=== PATIENT | male | born 1935 | race Hispanic/Latino ===

== ENCOUNTER 2016-09-21 12:13 | Emergency (ER) | payer MEDICARE ==
[2016-09-21 12:15] VITALS: BMI 29.5
[2016-09-21 12:33] VITALS: TEMP 98
--- NOTE | 2016-09-21 12:34 | ED PDOC ---
Arrival/HPI - General Chief Complaint: High Blood Pressure Time Seen by Provider: 09/21/16 12:17 Historian: Patient - History of Present Illness Narrative History of Present Illness (Text): 09/21/16 12:29 A 80 year old male, whose past medical history includes hypertension, was sent into the emergency department by visiting nurse for high blood pressure. Patient states he is usually non-compliant with his blood pressure medication. He reports approximately 1 week ago he experienced chest pain that lasted for 4- 5 hours. Patient denies any fever, chills, nausea, vomiting, abdominal pain, chest pain, shortness of breath, cough, lower extremity swelling or any other complaints at this time. PMD: Dr. Guevara Time/Duration: Prior to Arrival Symptom Course: Unchanged Quality: Other Context: Home Past Medical History - Provider Review Nursing Documentation Reviewed: Yes - Infectious Disease Hx of Infectious Diseases: None - Tetanus Immunization Tetanus Immunization: Unknown - Cardiac Hx Hypertension: Yes Other/Comment: Heart Stents x 3 - Neurological Hx Paralysis: No - HEENT Hx HEENT Disorder: Yes (Uses glasses) - Hematological/Oncological Hx Blood Transfusions: No Hx Blood Transfusion Reaction: No - Musculoskeletal/Rheumatological Hx Musculoskeletal Disorders: No - Genitourinary/Gynecological Hx Hematuria: Yes - Psychiatric Hx Substance Use: No - Anesthesia Hx Anesthesia Reactions: No Hx Malignant Hyperthermia: No - Suicidal Assessment Feels Threatened In Home Enviroment: No Family/Social History - Physician Review Nursing Documentation Reviewed: Yes Family/Social History: No Known Family HX Smoking Status: Former Smoker Hx Alcohol Use: No Hx Substance Use: No Hx Substance Use Treatment: No Allergies/Home Meds Allergies/Adverse Reactions: Allergies No Known Allergies Allergy (Verified 11/24/12 02:37) Home Medications: Home Meds Medication Instructions Recorded Confirmed Atenolol [Tenormin] 25 mg PO BID 09/21/16 09/21/16 Lisinopril/Hydrochlorothiazide 1 tab PO DAILY 09/21/16 09/21/16 [Lisinopril-Hctz 20-12.5 mg Tab] amLODIPine [Norvasc] 10 mg PO DAILY 09/21/16 09/21/16 Review of Systems - Physician Review All systems were reviewed & negative as marked: Yes - Review of Systems Constitutional: Other (High blood pressure). absent: Fevers, Night Sweats Respiratory: absent: SOB, Cough Cardiovascular: absent: Chest Pain, Edema Gastrointestinal: absent: Abdominal Pain, Nausea, Vomiting Physical Exam Vital Signs Reviewed: Yes Vital Signs Temp Pulse Resp BP Pulse Ox 09/21/16 13:28 59 L 20 177/78 H 94 L 09/21/16 13:21 43 L 17 165/82 H 95 09/21/16 13:06 46 L 19 170/81 H 94 L 09/21/16 12:54 50 L 18 185/97 H 95 09/21/16 12:50 44 L 16 198/92 H 96 09/21/16 12:48 45 L 18 198/92 H 95 09/21/16 12:47 41 L 15 215/91 H 94 L 09/21/16 12:46 61 21 211/102 H 95 09/21/16 12:13 98 F 47 L 16 194/103 H 96 Temperature: Afebrile Blood Pressure: Hypertensive Pulse: Bradycardic Respiratory Rate: Normal Appearance: Positive for: Well-Appearing, Non-Toxic, Comfortable Pain Distress: None Mental Status: Positive for: Alert and Oriented X 3 - Systems Exam Head: Present: Atraumatic, Normocephalic Pupils: Present: PERRL Extroacular Muscles: Present: EOMI Conjunctiva: Present: Normal Mouth: Present: Moist Mucous Membranes Neck: Present: Normal Range of Motion Respiratory/Chest: Present: Clear to Auscultation, Good Air Exchange. No: Respiratory Distress, Accessory Muscle Use Cardiovascular: Present: Normal S1, S2, Bradycardic (Low 40's on patients monitor, wax and wanes in the 60's). No: Murmurs Abdomen: Present: Normal Bowel Sounds. No: Tenderness, Distention, Peritoneal Signs Back: Present: Normal Inspection Upper Extremity: Present: Normal Inspection. No: Cyanosis, Edema Lower Extremity: Present: Normal Inspection. No: Edema Neurological: Present: GCS=15, CN II-XII Intact, Speech Normal Skin: Present: Warm, Dry, Normal Color. No: Rashes Psychiatric: Present: Alert, Oriented x 3, Normal Insight, Normal Concentration Medical Decision Making ED Course and Treatment: 09/21/16 12:29 Impression: A 80 year old male with high blood pressure. Patient reports chest pain for 4-5 hours 1 week ago. Patient currently denies any pain or discomfort. Physical exam unremarkable. Differential Diagnosis included but are not limited to: Hypertensive urgency secondary to medication non-compliance, Chest pain rule out ACS Plan: -- Chest xray -- EKG -- Labs -- Urinalysis -- Aspirin and Apresoline -- Reassess and disposition Progress Notes: Report Date : 09/21/2016 13:03:22 Procedure: Chest xray Dictator : Desmond Iyer MD IMPRESSION: No active disease. 09/21/16 13:17 CRUZITO Risk score is low and noted in the chart. Case was discussed with Dr. Doran who will see him in the office this Monday. Dr. Doran recommended that patient be compliant with his medication and double the dose of his Lisinopril/HCTZ. Patient advised to return to the ED if symptoms worsen or any other concern. 09/21/16 13:22 EKG shows sinus bradycardia at 46 BPM with T-wave inversions in inferior leads, with no changes from prior on 03/27/14. Interpreted by me. - Lab Interpretations Lab Results: 09/21/16 12:30 09/21/16 12:30 Lab Results 09/21/16 12:30: Sodium 140, Potassium 4.5, Chloride 106, Carbon Dioxide 25, Anion Gap 14, BUN 16, Creatinine 1.1, Est GFR ( Amer) > 60, Est GFR (Non- Af Amer) > 60, Random Glucose 101, Calcium 9.6, Magnesium 2.1, Total Bilirubin 1.3, AST 23, ALT 32, Alkaline Phosphatase 76, Lactate Dehydrogenase 376, Total Creatine Kinase 36, Troponin I 0.01 D, Total Protein 7.8, Albumin 4.1, Globulin 3.7, Albumin/Globulin Ratio 1.1 09/21/16 12:30: WBC 5.9, RBC 5.19, Hgb 15.4, Hct 44.4, MCV 85.5, MCH 29.7, MCHC 34.7, RDW 12.7, Plt Count 64 L, MPV 12.3 H, Gran % 37.7 L, Lymph % (Auto) 46.5 H , Crook % (Auto) 12.5 H, Eos % (Auto) 2.6, Baso % (Auto) 0.7, Gran # 2.21, Lymph # 2.7, Crook # 0.7 H, Eos # 0.2, Baso # 0.04 I have reviewed the lab results: Yes Interpretation: Abnormal lab values (Thrombocytopenia which is his baseline) - RAD Interpretation Radiology Orders: 09/21/16 12:30 CHEST PORTABLE [RAD] Stat - Medication Orders Current Medication Orders: Discontinued Medications Aspirin (Aspirin Chewable) 324 mg PO STAT STA Stop: 09/21/16 12:32 Last Admin: 09/21/16 12:48 Dose: 324 mg Hydralazine HCl (Apresoline) 10 mg IVP ONCE ONE Stop: 09/21/16 12:32 Last Admin: 09/21/16 12:48 Dose: 10 mg CRUZITO Risk Score for UA/NSTEMI - CRUZITO Risk Score Age > 64: YES 3 or more CAD Risk Factors: YES Aspirin use in past 7 days: NO Severe Angina: NO EKG ST changes greater than 0.5mm: NO Positive Cardiac Marker: NO CRUZITO Score: 2 % risk at 14 days of: all cause mortality, new or recurrent ND, or severe recurrent ischemia requiring urgen revascularization: 8% - Scribe Statement The provider has reviewed the documentation as recorded by the [employer] [place] Provider Scribe Attestation: All medical record entries made by the Neoibgibran were at my direction and personally dictated by me. I have reviewed the chart and agree that the record accurately reflects my personal performance of the history, physical exam, medical decision making, and the department course for this patient. I have also personally directed, reviewed, and agree with the discharge instructions and disposition. Disposition/Present on Arrival - Present on Arrival Any Indicators Present on Arrival: No History of DVT/PE: No History of Uncontrolled Diabetes: No Urinary Catheter: No History of Decub. Ulcer: No History Surgical Site Infection Following: None - Disposition Have Diagnosis and Disposition been Completed?: Yes Diagnosis: Hypertension Disposition: HOME/ ROUTINE Disposition Time: 13:19 Patient Plan: Discharge Condition: FAIR Additional Instructions: Dr. Webb, thank you for letting us take care of you today. Your provider was Dr. Meyer. You were treated for Hyptension, Chest Pain. The emergency medical care you received today was directed at your acute symptoms. If you were prescribed any medication, please fill it and take as directed. It may take several days for your symptoms to resolve. Return to the Emergency Department if your symptoms worsen, do not improve, or if you have any other problems. Please contact your doctor or call one of the physicians/clinics you have been referred to that are listed on the Patient Visit Information form that is included in your discharge packet. Bring any paperwork you were given at discharge with you along with any medications you are taking to your follow up visit. Our treatment cannot replace ongoing medical care by a primary care provider (PCP) outside of the emergency department. Thank you for allowing the [facility] team to be part of your care today. If you had an X-Ray or CT scan: A Radiologist will review the ED reading if any change in treatment is needed we will contact you. If you had a blood, urine, or wound culture: It will take several days for the results, if any change in treatment is needed we will contact you. If you had an STI test: It will take 48 hours for the results. Please call after 1 week if you have not heard back. Prescriptions: amLODIPine [Norvasc] 10 mg PO DAILY #30 tab Atenolol [Tenormin] 25 mg PO BID #60 tablet Lisinopril/Hydrochlorothiazide [Lisinopril-Hctz 20-25 mg Tab] 1 each PO DAILY # 30 tablet Referrals: Pablito Guevara MD [Primary Care Provider] - Follow up with primary Forms: WORK NOTE
[2016-09-21 12:49] LABS: BASO # 0.04 K/mm3 (0.0-2.0); BASO % 0.7 % (0.0-3.0); EOS # 0.2 (0.0-0.7); EOS % 2.6 % (1.5-5.0); GRAN # 2.21 (1.4-6.5); GRAN % 37.7 % (50.0-68.0); HEMATOCRIT 44.4 % (42.0-52.0); LYMPH # 2.7 (1.2-3.4); LYMPH % 46.5 % (22.0-35.0); MEAN CELL VOLUME 85.5 fL (80.0-105.0); MEAN CORPUSCULAR HEMOGLOBIN 29.7 pg (25.0-35.0); MEAN CORPUSCULAR HGB CONC 34.7 g/dl (31.0-37.0); MEAN PLATELET VOLUME 12.3 fl (7.0-11.0); MONO # 0.7 (0.1-0.6); MONO % 12.5 % (1.0-6.0); PLATELET COUNT 64 10^3/uL (120.0-450.0); RED CELL DISTRIBUTION WIDTH 12.7 % (11.5-14.5); WHITE BLOOD COUNT 5.9 10^3/ul (4.5-11.0)
[2016-09-21 12:50] LABS: ADD MANUAL DIFF? NO
[2016-09-21 12:54] LABS: ALB/GLOB RATIO 1.1 (1.1-1.8); ALKALINE PHOSPHATASE 76 U/L (38-133); ALT/SGPT 32 U/L (7-56); AST/SGOT 23 U/L (15-59); BILIRUBIN,TOTAL 1.3 mg/dL (0.2-1.3); BLOOD UREA NITROGEN 16 mg/dL (7-21); CALCIUM 9.6 mg/dL (8.4-10.5); CARBON DIOXIDE 25 mmol/L (21-33); CHLORIDE 106 mmol/L (98-107); GFR AFRICAN-AMERICAN > 60; GLUCOSE,RANDOM 101 mg/dL (70-110); MAGNESIUM 2.1 mg/dL (1.7-2.2); POTASSIUM 4.5 mmol/L (3.6-5.0); SODIUM 140 mmol/L (132-148); TOTAL PROTEIN 7.8 g/dL (5.8-8.3)
--- NOTE | 2016-09-21 13:05 | RAD ---
HISTORY: chest pain COMPARISON: 05/22/2013 FINDINGS: LUNGS: No active pulmonary disease. PLEURA: No significant pleural effusion identified, no pneumothorax apparent. CARDIOVASCULAR: Mild cardiomegaly OSSEOUS STRUCTURES: No significant abnormalities. VISUALIZED UPPER ABDOMEN: Normal. OTHER FINDINGS: None. IMPRESSION: No active disease.
[2016-09-21 13:06] LABS: TROPONIN I 0.01 ng/mL
[2016-09-21 13:29] VITALS: BP 177/78; PULSE 59; RESP 20; O2SAT 94
--- NOTE | 2016-09-21 19:01 | CARD ---
APPROVED REPORT EKG Measurement Heart [id number] <Conclusion> Undetermined rhythm Left axis deviation Left ventricular hypertrophy with QRS widening Abnormal ECG
== END 2016-09-21 13:44 | disposition home or self-care (01) ==
LOC: ED 12:13
DX: I10 Essential (primary) hypertension (principal); Z95.5 Presence of coronary angioplasty implant and graft; Z91.19 Patient's noncompliance with other medical treatment and regimen; Z87.891 Personal history of nicotine dependence
CPT/HCPCS: 71010; 80053; 82550; 83615; 83735; 84484; 85025; 93005; 96374; 99285; J0360